=== PATIENT | male | born 1990 | race Caucasian/White ===

== ENCOUNTER 2017-10-02 20:02 | Emergency (ER) | payer OTHER ==
[2017-10-02 20:31] VITALS: BP 120/79; PULSE 93; O2SAT 98
[2017-10-02] MEDS ORDERED: Sodium Chloride 0.9% 1000 ML 1,000 ML IV STA (20:42)
[2017-10-02] MEDS ORDERED: Sodium Chloride 0.9% 1000 ML 1,000 ML ONE (20:46)
--- NOTE | 2017-10-02 20:46 | ERPHSYRPT ---
- History of Present Illness Time Seen by Provider: 10/02/17 20:37 Source: patient Exam Limitations: no limitations Patient Subjective Stated Complaint: Pt arrives to ER for detox from meth stating has been longer than 3 days since he last ate and doesnt remember the last time he drank. States "everything is out of wack" and "I'm cramping all over". Pt last used meth 0600 by smoking and snorting, denies IV use. Denies EtOH or any other drug problems. States has been using meth "all day every day for past 2 weeks" stating first used 2 weeks ago because it was offered and he' s stressed from CPS case. Pt educated that meth use does not mathew well for his case. Pt was told needs inpatient therapy by chief digital media officer so decided to come here for tx and admission. Denies SI/HI. Calm and cooperative at this time. Triage Nursing Assessment: see above Physician History: 26-year-old white male arrives with complaint of feeling like he is withdrawing from methamphetamines he states he's been using methamphetamines for 12 days he feels shaky. He states that he has not had any thing to eat or drink for several days. Has no fever no vomiting. No suicidal or homicidal ideation. He states he was told by the police to show up in the emergency room. Past medical history includes Crohn's. Patient states he does not drink alcohol states he is new to using meth he states he doesn't use any other drugs. Timing/Duration: other (using meth for 12 days stop todayy) Severity: moderate Modifying Factors: Improves With: other (not eating for several days) Associated Symptoms: other (feels shaky), No nausea, No vomiting, No abdominal pain, No shortness of breath, No heartburn, No diaphoresis, No cough, No chills , No chest pain, No fever, No headaches, No loss of appetite, No malaise, No rash, No syncope, No seizure, No weakness Allergies/Adverse Reactions: methylphenidate [From Ritalin] Allergy (Verified 10/02/17 20:32) Hives Home Medications: Dicyclomine HCl 20 mg [Bentyl 20 mg] 20 mg PO 10/02/17 [History] - Review of Systems Constitutional: Other (feels shaky) Eyes: No Symptoms Ears, Nose, & Throat: No Symptoms Respiratory: No Cough, No Dyspnea Cardiac: No Chest Pain, No Edema, No Syncope Abdominal/Gastrointestinal: Appetite Changes ( not eating or drinkingfor several days), No Abdominal Pain, No Nausea, No Vomiting, No Diarrhea Genitourinary Symptoms: No Dysuria Musculoskeletal: No Back Pain, No Neck Pain Skin: No Rash Neurological: No Symptoms Psychological: Drug Abuse, Other (feels shaky) Endocrine: No Symptoms All Other Systems: Reviewed and Negative - Past Medical History Pertinent Past Medical History: Yes GI Medical History: Crohns Disease Other Medical History: Methamphetamine use, Gastritis - Past Surgical History Past Surgical History: No - Social History Smoking Status: Never smoker Exposure to second hand smoke: Yes Drug Use: marijuana, methamphetamines Patient Lives Alone: No - Nursing Vital Signs Nursing Vital Signs: Initial Vital Signs Temperature 98.6 F 10/02/17 20:17 Pulse Rate 93 H 10/02/17 20:17 Respiratory Rate 18 10/02/17 20:17 Blood Pressure 120/79 10/02/17 20:17 O2 Sat by Pulse Oximetry 98 10/02/17 20:17 Pain Scale Pain Intensity [Generalized] 10 Pain Intensity 10 - Physical Exam General Appearance: other (mildly tremulous) Eye Exam: PERRL/EOMI, eyes nml inspection Ears, Nose, Throat Exam: normal ENT inspection, TMs normal, pharynx normal, moist mucous membranes Neck Exam: normal inspection, non-tender, supple, full range of motion Respiratory Exam: normal breath sounds, lungs clear, No respiratory distress Cardiovascular Exam: regular rate/rhythm, normal heart sounds, normal peripheral pulses Gastrointestinal/Abdomen Exam: soft, normal bowel sounds, No tenderness, No mass Back Exam: normal inspection, normal range of motion, No CVA tenderness, No vertebral tenderness Extremity Exam: normal inspection, normal range of motion, pelvis stable Neurologic Exam: alert, oriented x 3, cooperative, joy operator II-XII nml as tested, normal mood/affect, nml cerebellar function, nml station & gait, sensation nml, No motor deficits Skin Exam: normal color, warm, dry, No rash Lymphatic Exam: No adenopathy SpO2 Interpretation: normal SpO2: 98 Oxygen Delivery: Room Air - Course Nursing assessment & vital signs reviewed: Yes EKG Interpreted by Me: RATE (78 bpm), Sinus Rhythm, NORMAL AXIS, Other (EKG : Sinus rhythm, 70 bpm, normal axis no acute ST or T wave changes essentially normal EKG) Ordered Tests: Active Orders 24 hr Category Date Time Status Accucheck STAT Care 10/02/17 20:42 Active EKG-ER Only STAT Care 10/02/17 20:42 Active IV Insertion STAT Care 10/02/17 20:42 Active ACETAMINOPHEN Stat Lab 10/02/17 20:55 Completed CBC W DIFF Stat Lab 10/02/17 20:55 Completed CMP Stat Lab 10/02/17 20:55 Completed CULTURE,URINE Stat Lab 10/02/17 21:47 Received ETHYL ALCOHOL Stat Lab 10/02/17 20:55 Completed SALICYLATE Stat Lab 10/02/17 20:55 Completed UA W/ MICROSCOPIC Stat Lab 10/02/17 21:47 Completed Urine Triage Profile Stat Lab 10/02/17 21:47 Completed Medication Summary Discontinued Medications Generic Name Dose Route Start Last Admin Trade Name Freq PRN Reason Stop Dose Admin Sodium Chloride 1,000 mls @ 999 mls/hr 10/02/17 20:42 10/02/17 21:48 Sodium Chloride 0.9% 1000 Ml IV 10/02/17 21:42 Infused .Q1H1M STA Infusion Sodium Chloride Confirm 10/02/17 20:46 Sodium Chloride 0.9% 1000 Ml Administered 10/02/17 20:47 Dose 1,000 mls @ ud .ROUTE .STK-MED ONE Lab/Rad Data: Laboratory Result Diagrams 10/02/17 20:55 10/02/17 20:55 Laboratory Results 10/02/17 10/02/17 10/02/17 Range/Units 21:47 21:47 20:55 WBC (4.0-10.5) K/mm3 RBC (4.1-5.6) M/mm3 Hgb (12.5-18.0) gm/dl Hct (42-50) % MCV (78-100) fl MCH (26-32) pg MCHC (32-36) g/dl RDW (11.5-14.0) % Plt Count (150-450) K/mm3 MPV (6-9.5) fl Gran % (36.0-66.0) % Eos # (Auto) (0-0.5) Absolute Lymphs (auto) (1.0-4.6) Absolute Monos (auto) (0.0-1.3) Lymphocytes % (24.0-44.0) % Monocytes % (0.0-12.0) % Eosinophils % (0.00-5.0) % Basophils % (0.0-0.4) % Absolute Granulocytes (1.4-6.9) Basophils # (0-0.4) Sodium 143 (137-145) mmol/L Potassium 3.6 (3.5-5.1) mmol/L Chloride 104 (98-107) mmol/L Carbon Dioxide 27 (22-30) mmol/L Anion Gap 16.0 H (5-15) MEQ/L BUN 22 H (9-20) mg/dL Creatinine 0.87 (0.66-1.25) mg/dL Estimated GFR > 60.0 ML/MIN Glucose 84 (74-106) mg/dL Calcium 10.0 (8.4-10.2) mg/dL Total Bilirubin 1.00 (0.2-1.3) mg/dL AST 22 (17-59) U/L ALT 13 (0-50) U/L Alkaline Phosphatase 72 (38-126) U/L Serum Total Protein 8.2 (6.3-8.2) g/dL Albumin 5.0 (3.5-5.0) g/dL Ur Collection Type VOID Urine Color DARK YELLOW (YELLOW) Urine Appearance CLEAR (CLEAR) Urine pH 5.0 (5-6) Ur Specific [place] 1.025 (1.005-1.025) Urine Protein TRACE (Negative) Urine Ketones SMALL (NEGATIVE) Urine Blood NEGATIVE (0-5) Patrice/ul Urine Nitrite NEGATIVE (NEGATIVE) Urine Bilirubin NEGATIVE (NEGATIVE) Urine Urobilinogen 1 (0-1) mg/dL Ur Leukocyte Esterase NEGATIVE (NEGATIVE) Ur Epithelial Cells RARE (FEW) /HPF Urine Culture Reflexed YES (NO) Urine Glucose NEGATIVE (NEGATIVE) mg/dL Salicylates < 1.0 L (2-20) mg/dL Urine Opiates Level NEGATIVE (NEGATIVE) Ur Methadone NEGATIVE (NEGATIVE) Acetaminophen < 10 L (10-30) ug/ml Urine Barbiturates NEGATIVE (NEGATIVE) Ur Phencyclidine (PCP) NEGATIVE (NEGATIVE) Urine Amphetamine POSITIVE (NEGATIVE) U Benzodiazepine Level NEGATIVE (NEGATIVE) Urine Cocaine NEGATIVE (NEGATIVE) Urine Marijuana (THC) POSITIVE (NEGATIVE) Ethyl Alcohol < 10 (0-10) mg/dL Specimen Received 10/02/17 2145 10/02/17 Range/Units 20:55 WBC 7.0 (4.0-10.5) K/mm3 RBC 4.85 (4.1-5.6) M/mm3 Hgb 16.3 (12.5-18.0) gm/dl Hct 47.2 (42-50) % MCV 97.3 (78-100) fl MCH 33.6 H (26-32) pg MCHC 34.5 (32-36) g/dl RDW 13.1 (11.5-14.0) % Plt Count 197 (150-450) K/mm3 MPV 10.7 H (6-9.5) fl Gran % 59.1 (36.0-66.0) % Eos # (Auto) 0.14 (0-0.5) Absolute Lymphs (auto) 1.85 (1.0-4.6) Absolute Monos (auto) 0.79 (0.0-1.3) Lymphocytes % 26.6 (24.0-44.0) % Monocytes % 11.4 (0.0-12.0) % Eosinophils % 2.0 (0.00-5.0) % Basophils % 0.9 (0.0-0.4) % Absolute Granulocytes 4.11 (1.4-6.9) Basophils # 0.06 (0-0.4) Sodium (137-145) mmol/L Potassium (3.5-5.1) mmol/L Chloride (98-107) mmol/L Carbon Dioxide (22-30) mmol/L Anion Gap (5-15) MEQ/L BUN (9-20) mg/dL Creatinine (0.66-1.25) mg/dL Estimated GFR ML/MIN Glucose (74-106) mg/dL Calcium (8.4-10.2) mg/dL Total Bilirubin (0.2-1.3) mg/dL AST (17-59) U/L ALT (0-50) U/L Alkaline Phosphatase (38-126) U/L Serum Total Protein (6.3-8.2) g/dL Albumin (3.5-5.0) g/dL Ur Collection Type Urine Color (YELLOW) Urine Appearance (CLEAR) Urine pH (5-6) Ur Specific [place] (1.005-1.025) Urine Protein (Negative) Urine Ketones (NEGATIVE) Urine Blood (0-5) Patrice/ul Urine Nitrite (NEGATIVE) Urine Bilirubin (NEGATIVE) Urine Urobilinogen (0-1) mg/dL Ur Leukocyte Esterase (NEGATIVE) Ur Epithelial Cells (FEW) /HPF Urine Culture Reflexed (NO) Urine Glucose (NEGATIVE) mg/dL Salicylates (2-20) mg/dL Urine Opiates Level (NEGATIVE) Ur Methadone (NEGATIVE) Acetaminophen (10-30) ug/ml Urine Barbiturates (NEGATIVE) Ur Phencyclidine (PCP) (NEGATIVE) Urine Amphetamine (NEGATIVE) U Benzodiazepine Level (NEGATIVE) Urine Cocaine (NEGATIVE) Urine Marijuana (THC) (NEGATIVE) Ethyl Alcohol (0-10) mg/dL Specimen Received - Progress Progress: improved Progress Note: 10/02/17 23:08 26-year-old white male who states he is feeling shaky and weak after using amphetamines for 12 days states she has not been eating for 2 days. He denies any suicidal or homicidal ideation. His labs are essentially normal he states he is feeling much better after 1 L of normal saline EKG normal sinus rhythm [address] or T wave changes essentially normal EKG acetaminophen level is less than 10 salicylate level less than 1.0 alcohol level less than 10 patient denies alcohol use patient's white count is normal chemistry is essentially normal patient's urine drug screen is positive for amphetamines and THC. Patient with normal vitals. Patient states that he had been referred to [facility] for drug rehabilitation but now he is wishing to go to the [facility] around here, I will give the patient information about [facility], Patient does not want immediate treatment he is wanting information about treatment, He is also asking for Bentyl and stool softeners, I told the patient I'll be happy to give him a prescription for Miralax if he needs it. - Departure Time of Disposition: 23:11 Departure Disposition: Home Clinical Impression: Substance abuse, Volume depletion Condition: Fair Critical Care Time: No Referrals: BITA MARLEY [Primary Care Provider] - [facility] [Provider Group] Additional Instructions: Return home. Plenty of fluids. Miralax one scoop in 8 ounces of water orally daily. Follow-up with [facility]. Return for acute distress or for severe symptoms. do not use any more iillicit substances.
[2017-10-02 21:01] LABS: BASOPHIL % 0.9 % (0.0-0.4); Basophil (Absolute #) 0.06 (0-0.4); Eosinophil (Absolute #) 0.14 (0-0.5); Granulocyte Absolute (ANC) 4.11 (1.4-6.9); Granulocytes % 59.1 % (36.0-66.0); Hematocrit 47.2 % (42-50); Hemoglobin 16.3 gm/dl (12.5-18.0); Lymphocyte (Absolute #) 1.85 (1.0-4.6); Lymphocytes % 26.6 % (24.0-44.0); Mean Cell Volume 97.3 fl (78-100); Mean Corpuscular Hemoglobin 33.6 pg (26-32); Mean Corpuscular Hgb Concent. 34.5 g/dl (32-36); Mean Platelet Volume 10.7 fl (6-9.5); Monocyte (Absolute #) 0.79 (0.0-1.3); Monocytes % 11.4 % (0.0-12.0); Platelet Count 197 K/mm3 (150-450); Red Blood Count 4.85 M/mm3 (4.1-5.6); Red Cell Distribution Width 13.1 % (11.5-14.0)
[2017-10-02 21:22] LABS: ALKALINE PHOSPHATASE 72 U/L (38-126); BLOOD UREA NITROGEN 22 mg/dL (9-20); CHLORIDE 104 mmol/L (98-107); Carbon Dioxide 27 mmol/L (22-30); Creatinine 1 0.87 mg/dL (0.66-1.25); Glucose 84 mg/dL (74-106); Potassium 3.6 mmol/L (3.5-5.1); SGOT/AST 22 U/L (17-59); SGPT/ALT 13 U/L (0-50); SODIUM 143 mmol/L (137-145); Total Protein 8.2 g/dL (6.3-8.2)
[2017-10-02 21:23] LABS: ACETAMINOPHEN < 10 ug/ml (10-30); ETHYL ALCOHOL < 10 mg/dL (0-10); SALICYLATE < 1.0 mg/dL (2-20)
[2017-10-02 21:58] LABS: Appearance CLEAR (CLEAR); Glucose NEGATIVE (NEGATIVE); Leukocyte Esterase NEGATIVE (NEGATIVE); Nitrite NEGATIVE (NEGATIVE); Protein,Urine Dip TRACE (Negative); Specific Gravity 1.025 (1.005-1.025)
[2017-10-02 21:59] LABS: Bilirubin NEGATIVE (NEGATIVE); Blood NEGATIVE Ery/ul (0-5); Ketones SMALL (NEGATIVE); Urobilinogen 1 mg/dL (0-1)
[2017-10-02 22:04] LABS: Epithelial Cells RARE /HPF (FEW)
[2017-10-02 22:09] LABS: Barbiturate,Urine NEGATIVE (NEGATIVE); Benzodiazepine,Urine NEGATIVE (NEGATIVE); Cocaine,Urine NEGATIVE (NEGATIVE); Methadone,Urine NEGATIVE (NEGATIVE); Opiate,Urine NEGATIVE (NEGATIVE); PCP,Urine NEGATIVE (NEGATIVE); THC,Urine POSITIVE (NEGATIVE)
[2017-10-02 23:11] LABS: Amphetamine,Urine POSITIVE (NEGATIVE)
== END 2017-10-03 00:03 | disposition home or self-care (01) ==
LOC: ED 20:02
DX: F15.10 Other stimulant abuse, uncomplicated (principal); E86.9 Volume depletion, unspecified
CPT/HCPCS: 36000; 36415; 80053; 80307; 81000; 82962; 85025; 87086; 93005; 96374; 99284; G0481; G0480

== ENCOUNTER 2018-01-21 12:05 | Emergency (ER) | payer OTHER ==
[2018-01-21] MEDS ORDERED: DUONEB 0.5-3 MG/3 ml Neb IH ONE ×2 (12:23→12:29)
[2018-01-21] MEDS ORDERED: solu-MEDROL 125 MG IM ONE (12:24)
--- NOTE | 2018-01-21 12:29 | ERPHSYRPT ---
- History of Present Illness Time Seen by Provider: 01/21/18 12:25 Source: patient Exam Limitations: no limitations Patient Subjective Stated Complaint: pt reports cough and congestion for 3 days. states he has been wheezing as well. concerned he may have bronchitis. Triage Nursing Assessment: pt is aox3, pupils perrl, afebrile, resps easy and non labored, expiratory wheezes heard posteriorly throughout lung garcia. radial pulses strong and equal. pt appears in no distress. intermittent cough noted upon exam that is productive in nature. Physician History: 27-year-old white male arrives with complaint of cough congestion sore throat symptoms for 3 days. No vomiting no diarrhea no chest pain. Past medical history includes Crohn's,. Past surgical history negative. Social history positive tobacco use negative alcohol former methamphetamine user. Timing/Duration: day(s) (3 days) Severity: moderate Modifying Factors: Improves With: nothing Associated Symptoms: cough, malaise, No nausea, No vomiting, No abdominal pain, No shortness of breath, No heartburn, No diaphoresis, No chills, No chest pain, No fever, No headaches, No loss of appetite, No rash, No syncope, No seizure, No weakness Allergies/Adverse Reactions: methylphenidate [From Ritalin] Allergy (Verified 10/02/17 20:32) Hives soy Allergy (Verified 01/21/18 12:23) Home Medications: Dicyclomine HCl 20 mg [Bentyl 20 mg] 20 mg PO 10/02/17 [History] Hx Tetanus, Diphtheria Vaccination/Date Given: No Hx Influenza Vaccination/Date Given: No Hx Pneumococcal Vaccination/Date Given: No Immunizations Up to Date: Yes - Review of Systems Eyes: No Symptoms Ears, Nose, & Throat: Nose Congestion, Sinus Drainage, Throat Pain, No Ear Pain , No Ear Discharge, No Hearing Changes, No Tinnitus, No Nose Pain, No Nose Discharge, No Epistaxis, No Mouth Pain, No Mouth Swelling, No Loose Teeth, No Throat Swelling, No Hoarse, No Painful Swallowing, No Snoring Respiratory: Cough, Wheezing, No Dyspnea Cardiac: No Chest Pain, No Edema, No Syncope Abdominal/Gastrointestinal: No Abdominal Pain, No Nausea, No Vomiting, No Diarrhea Genitourinary Symptoms: No Dysuria Musculoskeletal: No Back Pain, No Neck Pain Skin: No Rash Neurological: No Dizziness, No Focal Weakness, No Sensory Changes Psychological: No Symptoms Endocrine: No Symptoms All Other Systems: Reviewed and Negative - Past Medical History Pertinent Past Medical History: Yes GI Medical History: Crohns Disease Other Medical History: Methamphetamine use, Gastritis - Past Surgical History Past Surgical History: No - Social History Smoking Status: Current every day smoker How long have you smoked: 16 Exposure to second hand smoke: Yes Drug Use: none Patient Lives Alone: No - Nursing Vital Signs Nursing Vital Signs: Initial Vital Signs Temperature 99.4 F 01/21/18 12:15 Pulse Rate 88 01/21/18 12:15 Respiratory Rate 20 01/21/18 12:15 Blood Pressure 117/72 01/21/18 12:15 O2 Sat by Pulse Oximetry 97 01/21/18 12:15 Pain Scale Pain Intensity 8 - Physical Exam General Appearance: mild distress, other (well-developed well-nourished white male nasal congestion frequent cough,) Eye Exam: PERRL/EOMI, eyes nml inspection Ears, Nose, Throat Exam: TMs normal, pharynx normal, other (boggy erythematous nasal mucosa) Neck Exam: normal inspection, non-tender, supple, full range of motion Respiratory Exam: airway intact, wheezing (Few scattered wheezes breath sounds equal bilaterally), No chest tenderness, No respiratory distress, No diminished breath sounds Cardiovascular Exam: regular rate/rhythm, normal heart sounds, normal peripheral pulses Gastrointestinal/Abdomen Exam: soft, normal bowel sounds, No tenderness, No mass Back Exam: normal inspection, normal range of motion, No CVA tenderness, No vertebral tenderness Extremity Exam: normal inspection, normal range of motion, pelvis stable Neurologic Exam: alert, oriented x 3, cooperative, clerical aide II-XII nml as tested, normal mood/affect, nml cerebellar function, nml station & gait, sensation nml, No motor deficits Skin Exam: normal color, warm, dry, No rash SpO2 Interpretation: normal (97%) SpO2: 97 Oxygen Delivery: Room Air - Course Nursing assessment & vital signs reviewed: Yes - Radiology Exams Chest X-ray Interpretation: Discussed w/ radiologist (CXR: normal heart and lungs, bony thorax intact.) Ordered Tests: Active Orders 24 hr Category Date Time Status Pulse Oximetry (ED) STAT Care 01/21/18 12:23 Active CHEST 1 VIEW (PORTABLE) Stat Exams 01/21/18 12:24 Completed Peak Expiratory Flow Rate ONCE RT 01/21/18 12:40 Active Respiratory Nebulizer STAT RT 01/21/18 12:24 Completed Respiratory Therapy Assessment DAILY RT 01/21/18 12:33 Active Medication Summary Discontinued Medications Generic Name Dose Route Start Last Admin Trade Name Norm PRN Reason Stop Dose Admin Albuterol/Ipratropium 3 ml 01/21/18 12:23 01/21/18 12:29 Duoneb 0.5-3 Mg/3 Ml Neb IH 01/21/18 12:24 3 ml STAT ONE Administration Albuterol/Ipratropium Confirm 01/21/18 12:29 Duoneb 0.5-3 Mg/3 Ml Neb Administered 01/21/18 12:30 Dose 3 ml IH .STK-MED ONE Methylprednisolone Sodium Succinate 125 mg 01/21/18 12:24 01/21/18 12:38 Solu-Medrol 125 Mg IM 01/21/18 12:25 125 mg STAT ONE Administration Methylprednisolone Sodium Succinate Confirm 01/21/18 12:36 Solu-Medrol 125 Mg Administered 01/21/18 12:37 Dose 125 mg .ROUTE .STK-MED ONE - Progress Progress: improved Progress Note: 01/21/18 12:54 27-year-old white male arrives with complaint of cough wheezing congestion symptoms for 3 days. No fevers at home. Patient is a smoker.. Patient with scattered wheezes on auscultation lungs otherwise clear. Heart is regular. Patient with boggy nasal mucosa. Patient is improved with Solu-Medrol 125 mg IM and DuoNeb treatment. Will discharge patient home with albuterol inhaler, antibiotics, prednisone - Departure Time of Disposition: 12:56 Departure Disposition: Home Clinical Impression: Bronchitis with bronchospasm URI (upper respiratory infection) Qualifiers: URI type: unspecified URI Qualified Code(s): J06.9 - Acute upper respiratory infection, unspecified Condition: Fair Critical Care Time: No Referrals: BITA MARLEY [Primary Care Provider] - Additional Instructions: Return home. Plenty of fluids. Albuterol inhaler as prescribed. Amoxicillin as prescribed. Prednisone as prescribed. Follow-up with your family doctor if symptoms are worse, no better in 48 hours, or persist longer than one week. Stop smoking. Return for acute distress or for severe symptoms. Prescriptions: Albuterol Common Canister [Proventil Common Canister] 2 puff IH Q4-6HPRN PRN #1 canister PRN Reason: sob, wheezing Amoxicillin 500 mg PO TID #30 capsule
[2018-01-21] MEDS ORDERED: solu-MEDROL 125 MG ONE (12:36)
--- NOTE | 2018-01-21 12:50 | XRAY ---
Indication: Fever and cough. Comparison: None Portable chest demonstrates normal heart and lungs. Bony thorax intact.
[2018-01-21 13:07] VITALS: BP 117/73; PULSE 90; O2SAT 98
== END 2018-01-21 13:18 | disposition home or self-care (01) ==
LOC: ED 12:05
DX: J40 Bronchitis, not specified as acute or chronic (principal); J98.01 Acute bronchospasm; J06.9 Acute upper respiratory infection, unspecified; Z72.0 Tobacco use; F15.90 Other stimulant use, unspecified, uncomplicated; K50.90 Crohn's disease, unspecified, without complications
CPT/HCPCS: 71045; 94150; 94640; 96372; 99284; J2930; A9270-GY